=== PATIENT | female | born 1995 | race Caucasian/White ===

== ENCOUNTER 2024-01-12 18:29 | Observation (INO) | payer OTHER, SELFPAY ==
[2024-01-12 18:59] VITALS: BP 107/65; PULSE 70
--- NOTE | 2024-01-12 19:09 | US_ITS ---
[address] [address] Patient Name: JAMAL LEHMAN MRN: [id number] date: 1995 Sex: F Assigned Patient Location: [facility] Current Patient Location: [facility] Accession/Order Number: [id number] Exam Date: 01/12/2024 19:30 Report Date: 01/12/2024 21:05 At the request of: MIRACLE PARIS Procedure: US OB cervical length TRANSABDOMINAL AND TRANSVAGINAL OB SONOGRAPHY FOR CERVICAL LENGTH, 01/12/2024 7:30 PM EDT. CLINICAL HISTORY: pt. rolan for 2 hours. COMPARISON: None. TRANSABDOMINAL PELVIC SONOGRAPHIC FINDINGS: Portion of visualized single head appears to be in a transverse presentation. heart rate of 133 bpm. TRANSVAGINAL CERVICAL SONOGRAPHIC FINDINGS: The cervix is closed with a length of 4.7 cm. Small amount of fluid in the cervical canal. US/US OB cervical length IMPRESSION: 1. The cervix is closed with a length of 4.7 cm containing a small trace amount of fluid in the cervical canal. 2. Portion of visualized single head appears to be in a transverse presentation. heart rate is 133 bpm. Electronically authenticated by: Danyelle COX Date: 01/12/2024 21:05
[2024-01-12 19:14] LABS: Bilirubin Urine NEGATIVE (NEGATIVE); Blood Urine NEGATIVE (NEGATIVE); Clarity Urine CLEAR (CLEAR); Color Urine YELLOW (YELLOW); Glucose Urine UA NEGATIVE (NEGATIVE); Ketones Urine TRACE mg/dL (NEGATIVE); Leukocyte Esterase Urine NEGATIVE (NEGATIVE); Nitrite Urine NEGATIVE (NEGATIVE); Protein Urine NEGATIVE (NEG/TRACE); Specific Gravity Urine >=1.030 (1.005-1.025)
[2024-01-12 19:21] LABS: Urine Microscopic Indicated NO
== END 2024-01-12 20:15 | disposition home or self-care (01) ==
PROVIDERS: Admitting Provider Midwife; Family Provider Family Medicine; Visit Provider Obstetrics & Gynecology
DX: O47.9 False labor, unspecified (principal); Z3A.00 Weeks of gestation of pregnancy not specified
CPT/HCPCS: 59025; 76817; 81003; G0378; G0379